=== PATIENT | male | born 1965 ===

== ENCOUNTER 2018-02-07 08:34 | Day surgery (SDC) | payer OTHER ==
[2018-02-04 16:03] VITALS: BMI 29.2
--- NOTE | 2018-02-07 08:06 | HP ---
History & Physical Update - History History: No Change - Physical Physical: No Change - Assessment Assessment: No Change - Plan Plan: No Change
--- NOTE | 2018-02-07 08:08 | OP ---
Operative Note - Note: Operative Date: 02/07/18 Pre-Operative Diagnosis: prostate ca Operation: prostate cryoablation and cystoscopy Findings: heterogeneous prostate Post-Operative Diagnosis: Same as Pre-op Surgeon: Paulo Romero Anesthesiologist/PUZZLE ASSEMBLER: Rc Hamilton Anesthesia: General Estimated Blood Loss (mls): 0 Drains & Tubes with Location: [address] [place] Operative Report Dictated: Yes
[2018-02-07] MEDS ORDERED: fentaNYL CITRATE 250 MCG/5 ML VIAL ONE (09:43)
[2018-02-07] MEDS ORDERED: PROPOFOL 20 ML ONE ×2 (09:43→10:37)
[2018-02-07] MEDS ORDERED: ROCURONIUM BROMIDE 50 MG/5 ML VIAL ONE (09:43)
[2018-02-07] MEDS ORDERED: MIDAZOLAM HCL 2 MG/2 ML SINGLE DOSE VIAL ONE (09:45)
[2018-02-07] MEDS ORDERED: ceFAZolin SODIUM 1 GM VIAL IVPB ONE (10:12)
[2018-02-07] MEDS ORDERED: ONDANSETRON 4 MG/2 ML VIAL IVPUSH PRN (11:44)
[2018-02-07] MEDS ORDERED: PROMETHAZINE HCL 25 MG/1 ML VIAL IVPUSH PRN (11:44)
[2018-02-07] MEDS ORDERED: LACTATED RINGERS SOLUTION 1,000 ML IV SCH (11:45)
--- NOTE | 2018-02-07 13:06 | OP ---
DATE OF OPERATION: 02/07/2018 PREOPERATIVE DIAGNOSIS: Prostate cancer. POSTOPERATIVE DIAGNOSIS: Prostate cancer. PRODEDURE: Prostate cryoablation and cystoscopy. SURGEON: Paulo Farmer MD AUTO WASHER: None. ANESTHESIA: General via laryngeal mask. ANESTHESIOLOGIST: Rc Hamilton MD SPECIMENS: None. CULTURES: None. DRAINS: An 18-[place]og[place] Overton catheter. ESTIMATED BLOOD LOSS: None. COMPLICATIONS: None. PROCEDURE WAS FOLLOWS: Patient was brought into the operating room, placed on the operating table in the supine position. After the administration of general anesthesia via laryngeal mask, intravenous antibiotics were administered. Sequential compression devices were placed. The patient was then placed in the dorsal lithotomy position. The perineum and genitals were prepped and draped in the usual sterile manner. The perineum had been previously shaved. An 18-[place]og[place] Overton catheter was placed per urethra into the bladder, 10 mL was placed in the balloon, and bladder was then filled with 350 mL of sterile normal saline and clamped. Now, transrectal ultrasound probe was inserted into the rectum, and the plan for the cryoablation was done for the focal left side of the cryoablation. After the plan was devised for the cryoablation, the temperature sensors were placed, one in [place] fascia, one in the external sphincter. Now, the Overton catheter was removed, and flexible cystoscopy was performed, which demonstrated normal anterior urethra, normal prostatic urethra, no probes that penetrated the prostatic urethra. The bladder was entered and thoroughly inspected. There were no foreign bodies, tumors, stones, inflammation. Both ureteral orifices were in their usual location with a clear efflux bilaterally. No probes had punctured the bladder, as well. Now, Super Stiff guidewire was passed through the scope and the cystoscope was then removed. The urethral warmer was then placed into the bladder over the Super Stiff guidewire. Now, the probe position was confirmed on ultrasound. Then, prostate cryoablation was done with two freeze-thaw cycles. At the end of the procedure, the probes and temperature sensors were removed, compression was placed in the perineum for hemostasis, a sterile compressive dressing was placed, a 4 x 4 and Tegaderm. Urethral warmer was left in place for an additional 5 minutes and removed and replaced with an 18-[place]og[place] Overton catheter, which was placed on gravity drainage, returned clear. He tolerated the procedure well, was awoken from anesthesia in the operating room, extubated, and transferred to the recovery room in stable condition. PAULO FARMER M.D. [id number]
[2018-02-07] MEDS ORDERED: oxyCODONE HCL 5 MG TABLET PO PRN (13:21)
[2018-02-07 14:03] VITALS: BP 144/80; PULSE 100; TEMP 98.2
== END 2018-02-07 14:05 ==
LOC: JASU-SURG 08:34
PROVIDERS: ATTEND Urology
PROC: 0V503ZZ Destruction of Prostate, Percutaneous Approach (ICD-10-PCS; principal; 2018-02-07 10:00)
DX: C61 Malignant neoplasm of prostate (principal)
CPT/HCPCS: 55873; C2618; 94760